=== PATIENT | female | born 1975 | race Caucasian/White ===

== ENCOUNTER 2019-11-05 14:29 | Emergency (ER) | payer OTHER, SELFPAY ==
[2019-11-05 14:37] VITALS: BMI 24.7
--- NOTE | 2019-11-05 14:38 | ED_ITS ---
Entered by Arianna Schroeder, acting as scribe for Richie Plascencia MD, [facility] HPI - Chest Pain General: Chief Complaint: Chest Pain Stated Complaint: CHEST PAIN Time Seen by Provider: 11/05/19 14:38 Source: patient and RN notes reviewed Mode of arrival: EMS Limitations: no limitations History of Present Illness: HPI narrative: 44 yo female presents to ED [facility] complaints of chest pain. The patient states the pain was centralized and it radiated through to her back. She said the pain began right after lunch. She was given a Nitro in the ambulance on the way to the ED and she said the pain has since resolved. She said her dad passed at age 46 of heart attack; she also has a family history of blood clots. She had shortness of breath at the time but no sweating. Associated symptoms: Deny abdominal pain, dyspnea, fever(s), nausea, palpitations or vomiting Review of Systems General: Reports: 10 or more systems reviewed and unremarkable except in HPI and below Const: Denies: fever, chills or body aches Eyes: Reports: blind spots; Denies: change in vision or blurry vision ENMT: Denies: throat pain, enlarged tonsils, painful swallowing, hoarseness, mouth pain or swelling of lips/tongue Card: Reports: chest pain; Denies: palpitations, irregular heart rhythm, edema or swelling of feet/ankles Resp: Denies: shortness of breath, productive cough or non-productive cough GI: Denies: abdominal pain, nausea or vomiting : Denies: flank pain, difficulty urinating, painful urination, urinary frequency, urinary urgency or urinary hesitancy Musc: Reports: extremity pain (left shoulder), joint pain (left shoulder) and limited range of motion; Denies: neck pain, back pain or extremity swelling Skin/Breast: Denies: rash, itching or redness Neuro: Denies: headache, numbness in extremities or weakness in extremities Endo: Denies: excessive urination, excessive thirst or tired all the time PFSH ED PFSH: Statuses (acute, chronic, etc) shown below reflect problem list status as previously entered and may not be historically accurate Social History Smoking and tobacco status: current every day smoker Physical Exam Const: COMMON NORMALS: no apparent distress, average body habitus, oriented x3, no limitations, healthy appearing, alert and well nourished HENMT: COMMON NORMALS: normocephalic, head/scalp atraumatic and moist oral mucous membranes HEAD & SCALP: normocephalic and atraumatic Eye: COMMON NORMALS: PERRL, EOMs intact bilaterally, conjunctivae normal and no scleral icterus CONJUNCTIVA: Yes conjunctivae normal PUPIL: Yes PERRL Neck/C-Spine: COMMON NORMALS: full ROM, supple, no meningeal signs, no JVD and no carotid bruits Chest: COMMONS NORMALS: inspection of chest normal and palpation of chest normal Resp: COMMON NORMALS: normal respiratory effort, no retractions, no use of accessory muscles, clear to auscultation bilaterally and percussion normal AUSCULTATION: clear to auscultation bilaterally PERCUSSION: percussion normal Cardio: COMMON NORMALS: no JVD, regular rate, regular rhythm, S1 normal heart sound, S2 normal heart sound, no gallops, no clicks, no murmurs, no rub and peripheral pulses 2+ throughout RATE: regular rate RHYTHM: regular rhythm HEART SOUNDS: S1 normal and S2 normal PERIPHERAL PULSES: pulses 2+ throughout GI: COMMON NORMALS: normal to inspection, nondistended, normoactive bowel sounds, soft to palpation, non-tender, no hepatosplenomegaly, no masses and no bruits PALPATION: Yes soft and Yes no hepatosplenomegaly : COMMON NORMALS: Yes no CVA tenderness BLADDER/KIDNEY EXAM: Yes no CVA tenderness Back/Pelvis: COMMON NORMALS: no CVA tenderness Extremity: COMMON NORMALS: normal to inspection, full ROM, normal capillary refill, no calf tenderness and no pedal edema Neuro: COMMON NORMALS: oriented x3 SENSORIUM/ORIENTATION: Yes alert MENINGEAL SIGNS: Yes no meningeal signs Skin: COMMON NORMALS: no rashes or lesions noted, no wounds, skin turgor normal, no jaundice, no petechiae and no mottling GENERAL SKIN EXAM: no rashes or lesions noted and turgor normal Course Reevaluation(s): Reevaluation #1: Discussed her lab and imaging findings with her. Negative for acute findings. Elevated d-dimer but negative CTA of her lungs. High-sensitivity troponin negative x2. We will discharge her home with no new orders. She voiced understanding and is in agreement with the plan. She will follow-up with her primary care provider within 3 days. Time: 18:52 MDM - Chest Pain MDM Narrative: Medical decision making narrative: 44-year-old female patient who presented to the emergency department with chest.. Chest pain sudden onset. Evaluation in the ED was negative for acute coronary syndrome or a pulmonary embolism. No pneumonia or other acute cardiopulmonary disease. She is therefore discharged home with no new orders. Medical Records: Attestation: I reviewed the patient's medical records. Lab Data: Attestation: I reviewed the patient's lab results. Labs: Lab Results 11/05/19 11/05/19 11/05/19 Range/Units 14:15 14:15 14:15 WBC 5.6 (4.0-10.0) 10^3/ uL RBC 5.17 (4.1-5.3) 10^6/u L Hgb 13.2 (11.5-15.3) g/dL Hct 41.2 (37.0-47.0) % MCV 79.7 L (81-99) fL MCH 25.5 L (28.0-34.0) pg MCHC 32.0 (30.0-36.0) g/dL RDW 18.0 H (12.1-15.1) % Plt Count 267 (130-400) 10^3/c mm MPV 12.1 H (7.4-10.4) fL Neut % (Auto) 44.7 % Lymph % (Auto) 41.5 % [place] % (Auto) 7.6 % Eos % (Auto) 4.9 % Baso % (Auto) 1.1 % Neut # (Auto) 2.5 (1.8-7.7) 10^3/u L Lymph # (Auto) 2.3 (0.8-4.8) 10^3/u L [place] # (Auto) 0.4 (0.2-0.9) 10^3/u L Eos # (Auto) 0.3 (0.0-0.8) 10^3/u L Baso # (Auto) 0.1 (0.0-0.1) 10^3/u L Nucleated RBC % (a uto) 0 % Nucleated RBCs # 0.0 /100WBC D-Dimer 2.00 H (0-0.59) ug/mIFE U Sodium 134 L (136-145) mmol/L Potassium 3.7 (3.5-5.1) mmol/L Chloride 95 L (98-107) mmol/L Carbon Dioxide 26 (22-29) mmol/L Anion Gap 16.7 (5-19) BUN 15 (6-20) mg/dL Creatinine 1.0 H (0.5-0.9) mg/dL GFR Calculation 60.0 L (90-130) mL/min Glucose 96 (74-109) mg/dL Calcium 10.1 (8.5-10.5) mg/dL Total Bilirubin 0.2 (0.15-1.2) mg/dL AST 27 (0-32) U/L ALT 22 (0-33) U/L Alkaline Phosphata se 91 (35-105) IU/L Troponin T Baselin e (0-10) ng/mL Troponin T 120 Min poarch (0-10) ng/mL Delta Troponin T (0-10) ABS# NT-Pro-B Natriuret Pep 29 (0-125) pg/mL Total Protein 7.5 (6.6-8.7) g/dL Albumin 4.8 (3.5-5.2) g/dL Globulin 2.7 (1.3-4.6) g/dL Lipase 26 (13-60) U/L HCG, Qual (Negative) 11/05/19 11/05/19 11/05/19 Range/Units 14:15 16:08 16:10 WBC (4.0-10.0) 10^3/ uL RBC (4.1-5.3) 10^6/u L Hgb (11.5-15.3) g/dL Hct (37.0-47.0) % MCV (81-99) fL MCH (28.0-34.0) pg MCHC (30.0-36.0) g/dL RDW (12.1-15.1) % Plt Count (130-400) 10^3/c mm MPV (7.4-10.4) fL Neut % (Auto) % Lymph % (Auto) % [place] % (Auto) % Eos % (Auto) % Baso % (Auto) % Neut # (Auto) (1.8-7.7) 10^3/u L Lymph # (Auto) (0.8-4.8) 10^3/u L [place] # (Auto) (0.2-0.9) 10^3/u L Eos # (Auto) (0.0-0.8) 10^3/u L Baso # (Auto) (0.0-0.1) 10^3/u L Nucleated RBC % (a uto) % Nucleated RBCs # /100WBC D-Dimer (0-0.59) ug/mIFE U Sodium (136-145) mmol/L Potassium (3.5-5.1) mmol/L Chloride (98-107) mmol/L Carbon Dioxide (22-29) mmol/L Anion Gap (5-19) BUN (6-20) mg/dL Creatinine (0.5-0.9) mg/dL GFR Calculation (90-130) mL/min Glucose (74-109) mg/dL Calcium (8.5-10.5) mg/dL Total Bilirubin (0.15-1.2) mg/dL AST (0-32) U/L ALT (0-33) U/L Alkaline Phosphata se (35-105) IU/L Troponin T Baselin e 6 (0-10) ng/mL Troponin T 120 Min poarch 6.00 (0-10) ng/mL Delta Troponin T 0 (0-10) ABS# NT-Pro-B Natriuret Pep (0-125) pg/mL Total Protein (6.6-8.7) g/dL Albumin (3.5-5.2) g/dL Globulin (1.3-4.6) g/dL Lipase (13-60) U/L HCG, Qual Negative (Negative) Imaging Data^: CTA Chest: Radiologist's impression: [address] [address] [address] Scan Report Signed Patient: Jeimy West #: [id number] : 1975Acct#:[id number] Age/Sex: 44 / FADM Date: 11/05/19 Loc: ERRoom/Bed: Attending Dr: Ordering Provider/Ordering MD: Richie Plascencia MD, [facility] Date of Service: 11/05/19 Procedure(s): CT angio chest PE protcl [id number] Accession Number(s): [id number] Report Number: [id number] PROCEDURE INFORMATION: Exam: CT Angiography Chest With Contrast Exam date and time: 11/05/2019 4:54 PM Age: 44 years old Clinical indication: Shortness of breath; Additional info: Chest pain, SOB, high pretest prob TECHNIQUE: Imaging protocol: Computed tomographic angiography of the chest with intravenous contrast. 3D rendering: MIP and/or 3D reconstructed images were created by the technologist. Total DLP: 470.06 mGy-cm Radiation optimization: All CT scans at this facility use at least one of these dose optimization techniques: automated exposure control; mA and/or kV adjustment per patient size (includes targeted exams where dose is matched to clinical indication); or iterative reconstruction. Contrast material: OMNI; Contrast volume: 95 ml; Contrast route: LV; COMPARISON: No relevant prior studies available. FINDINGS: Pulmonary arteries: Overall exam quality is good for evaluating the pulmonary arteries. There are no intraluminal filling defects to indicate pulmonary embolism. Aorta: Unremarkable. No aortic aneurysm. No aortic dissection. Lungs: No pneumonia or mass. Overall lung architecture is normal. Pleural space: Unremarkable. No pneumothorax. No pleural effusion. Heart: Unremarkable. No cardiomegaly. No pericardial effusion. Gallbladder and bile ducts: The gallbladder is surgically absent. Adrenals: 1.4 cm fatty left adrenal adenoma. Lymph nodes: Borderline enlarged central mediastinal nodes are most likely reactive. For example an AP window node measures 1.1 cm. Bones/joints: Unremarkable. No acute fracture. Soft tissues: Bilateral breast implants. CT/CT angio chest PE protcl [id number] IMPRESSION: 1. No pulmonary embolism or pneumonia. 2. No significant chest findings. Radiation Dose CTDIVOL = (mGy): DLP = 470.06 (mGy-cm) Dictated By:Jian Cabrales MD Signed By:Jian Cabralesigned Date/Time:11/05/19 8679 EKG Data^: EKG 1: Attestation: I personally reviewed and interpreted this EKG as follows: EKG interpretation date: 11/05/19 EKG interpretation time: 15:04 Prior EKG tracings: not available for review Interpretation: Normal sinus rhythm. Heart rate 62. Normal axis No ST changes. EKG 2: Attestation: I personally reviewed and interpreted this EKG as follows: EKG interpretation date: 11/05/19 EKG interpretation time: 18:46 Prior EKG tracings: available for review Interpretation: Unchanged from earlier today. Discharge Plan Discharge Patient Disposition: Home, Self-Care Clinical Impression: Chest pain Qualifiers: Chest pain type: other chest pain Qualified Code(s): R07.89 - Other chest pain Condition: Stable Prescriptions: Continued diphenoxylate-atropine 2.5-0.025 mg tablet 1 tab PO DAILY PRN (Reason: Diarrhea) RF: 0 Ascomp with Codeine 42-43-387-40 mg capsule 1 cap PO DAILY RF: 0 triamterene-hydrochlorothiazid 37.5-25 mg tablet 1 tab PO DAILY RF: 0 Trokendi XR 100 mg capsule,extended release 24hr 100 mg PO DAILY RF: 0 Discharge Orders: Discharge Order (Routine); Ordered 11/05/19 Ordered By: Richie Plascencia Referrals: Winston Hillman CHURN TENDER [Family Provider] - 1-3 days Patient Instructions: Chest Pain (ED) Activity Restrictions/Additional Instructions: Return for any new or worsening symptoms. Follow-up with your primary care provider within 3 days. Coding Level of Care Code ED Investment Banker for Chg Fwd The documentation recorded by the Alexandre mace Valerie R, accurately reflects the service I personally performed and the decisions made by Thais burns Adegoke I, MD, [facility] Nov 05, 2019 14:29
--- NOTE | 2019-11-05 15:01 | ECG_ITS ---
Measurements Intervals Lewis Rate: 62 P: 55 TN: 154 QRS: 77 QRSD: 96 T: 60 QT: 415 QTc: 423 SINUS RHYTHM No previous ECG available for comparison Electronically Signed On 11-05-2019 17:36:39 CLINICAL SYSTEMS EDUCATOR by Monster Flores M.D. [email or web address]
[2019-11-05 15:18] LABS: Basophils # 0.1 10^3/uL (0.0-0.1); Basophils % 1.1 %; Eosinophils # 0.3 10^3/uL (0.0-0.8); Eosinophils % 4.9 %; Hematocrit 41.2 % (37.0-47.0); Hemoglobin 13.2 g/dL (11.5-15.3); Lymphocytes # 2.3 10^3/uL (0.8-4.8); Lymphocytes % 41.5 %; Mean Corpuscular Hemoglobin 25.5 pg (28.0-34.0); Mean Corpuscular Volume 79.7 fL (81-99); Mean Platelet Volume 12.1 fL (7.4-10.4); Monocytes # 0.4 10^3/uL (0.2-0.9); Monocytes % 7.6 %; Neutrophils # 2.5 10^3/uL (1.8-7.7); Neutrophils % 44.7 %; Nucleated Red Blood Cells % 0 %; Platelet Count 267 10^3/cmm (130-400); Red Blood Count 5.17 10^6/uL (4.1-5.3); White Blood Count 5.6 10^3/uL (4.0-10.0)
[2019-11-05 15:38] LABS: Troponin(5th) Baseline 6 ng/mL (0-10)
[2019-11-05 15:47] LABS: Alanine Aminotransferase 22 U/L (0-33); Albumin Level 4.8 g/dL (3.5-5.2); Alkaline Phosphatase 91 IU/L (35-105); Anion Gap 16.7 (5-19); Aspartate Amino Transferase 27 U/L (0-32); Blood Urea Nitrogen 15 mg/dL (6-20); Calcium 10.1 mg/dL (8.5-10.5); Carbon Dioxide 26 mmol/L (22-29); Chloride 95 mmol/L (98-107); Globulin 2.7 g/dL (1.3-4.6); Glucose 96 mg/dL (74-109); Lipase 26 U/L (13-60); NT Pro B Type Natriuretic Pept 29 pg/mL (0-125); Potassium 3.7 mmol/L (3.5-5.1); Sodium 134 mmol/L (136-145); Total Bilirubin 0.2 mg/dL (0.15-1.2); Total Protein 7.5 g/dL (6.6-8.7)
--- NOTE | 2019-11-05 16:01 | CTR_ITS ---
PROCEDURE INFORMATION: Exam: CT Angiography Chest With Contrast Exam date and time: 11/05/2019 4:54 PM Age: 44 years old Clinical indication: Shortness of breath; Additional info: Chest pain, SOB, high pretest prob TECHNIQUE: Imaging protocol: Computed tomographic angiography of the chest with intravenous contrast. 3D rendering: MIP and/or 3D reconstructed images were created by the technologist. Total DLP: 470.06 mGy-cm Radiation optimization: All CT scans at this facility use at least one of these dose optimization techniques: automated exposure control; mA and/or kV adjustment per patient size (includes targeted exams where dose is matched to clinical indication); or iterative reconstruction. Contrast material: OMNI; Contrast volume: 95 ml; Contrast route: LV; COMPARISON: No relevant prior studies available. FINDINGS: Pulmonary arteries: Overall exam quality is good for evaluating the pulmonary arteries. There are no intraluminal filling defects to indicate pulmonary embolism. Aorta: Unremarkable. No aortic aneurysm. No aortic dissection. Lungs: No pneumonia or mass. Overall lung architecture is normal. Pleural space: Unremarkable. No pneumothorax. No pleural effusion. Heart: Unremarkable. No cardiomegaly. No pericardial effusion. Gallbladder and bile ducts: The gallbladder is surgically absent. Adrenals: 1.4 cm fatty left adrenal adenoma. Lymph nodes: Borderline enlarged central mediastinal nodes are most likely reactive. For example an AP window node measures 1.1 cm. Bones/joints: Unremarkable. No acute fracture. Soft tissues: Bilateral breast implants. CT/CT angio chest PE protcl [id number] IMPRESSION: 1. No pulmonary embolism or pneumonia. 2. No significant chest findings. Radiation Dose CTDIVOL = (mGy): DLP = 470.06 (mGy-cm)
[2019-11-05 16:21] LABS: HCG Qualitative Urine. Negative (Negative)
[2019-11-05 16:31] LABS: Troponin 5 2HR Delta 0 ABS# (0-10)
--- NOTE | 2019-11-05 17:30 | PC.NURSE ---
PATIENT TO XRAY
[2019-11-05] MEDS: iohexol 350 mg/mL 100 mL Btl 95 ML IV (17:36)
[2019-11-05 19:31] VITALS: BP 104/64; PULSE 73; RESP 18; TEMP 36.8; O2SAT 98
== END 2019-11-05 19:34 | disposition home or self-care (01) ==
PROVIDERS: Emergency Provider Family Medicine; Family Provider Nurse Practitioner Family
DX: R07.89 Other chest pain (principal); F17.210 Nicotine dependence, cigarettes, uncomplicated
CPT/HCPCS: 36415; 71275; 80053; 81025; 83690; 83880; 84484; 85025; 85378; 93005; 99282; 99284; Q9967

== ENCOUNTER 2019-11-30 07:31 | Emergency (ER) | payer OTHER, SELFPAY ==
[2019-11-30 07:45] VITALS: BP 103/77; PULSE 83; RESP 18; TEMP 36.8; O2SAT 98; BMI 24.5
--- NOTE | 2019-11-30 07:59 | PC.NURSE ---
Patient to room
--- NOTE | 2019-11-30 08:00 | XRR_ITS ---
PROCEDURE INFORMATION: Exam: XR Left Ribs with PA Chest, 3 Views Exam date and time: 11/30/2019 8:32 AM Age: 44 years old Clinical indication: Pain and injury or trauma; Fall; Initial encounter; Rib area, left side; Blunt trauma; Chest wall pain; Injury date: 11/28/19; Injury details: Fell on stairs 11/26 hit left side; Patient HX: Difficulty breathing hurts when coughing, twisting or bending TECHNIQUE: Imaging protocol: XR Left ribs 3 views with PA chest. COMPARISON: CT angio chest PE protcl [id number] 11/05/2019 5:45 PM FINDINGS: Lungs: No lung contusion. Pleural space: No pneumothorax, hemothorax, or pleural effusion. Heart/Mediastinum: The cardiac silhouette is not enlarged. The mediastinal contours are normal. Bones/joints: There is a nondisplaced fracture of the lateral left 8th rib. XR/XR ribs LT mn 3V w CXR1V [id number] IMPRESSION: Left 8th rib fracture without pneumothorax.
--- NOTE | 2019-11-30 08:01 | W.ED.FALL ---
HPI - Fall General: Chief Complaint: Fall Stated Complaint: sob fell over weekend Time Seen by Provider: 11/30/19 07:57 History of Present Illness: HPI Narrative: 44-year-old female comes in today with left lower rib pain. Patient reports that she had fallen on Saturday evening while walking up stairs. Patient reports to have tripped over loose pants and falling striking her left anterior chest wall. Patient appears in moderate pain. Patient appears well. Patient reports taking an alprazolam around 6 this morning, and a oxycontin for her pain. Patient states the oxycontin was left over from her hysterectomy. Review of Systems General: Reports: 10 or more systems reviewed and unremarkable except in HPI and below Musc: Reports: other (left anterior lower rib pain, contusion) PFSH ED PFSH: Social History Smoking and tobacco status: current every day smoker Physical Exam Const: COMMON NORMALS: no apparent distress and oriented x3 GENERAL APPEARANCE: cooperative HENMT: COMMON NORMALS: normocephalic, external ears normal, EAC's normal, TM's normal bilaterally and external nose normal HEAD & SCALP: normal to inspection and normocephalic FACE & SINUS: normal facial exam NOSE: external nose normal GENERAL EAR: hearing not grossly impaired EXTERNAL EAR: Yes external ears normal EXTERNAL AUDITORY CANAL: EAC's normal TYMPANIC MEMBRANE: TM's normal bilaterally MOUTH: oral and palatal mucosa normal THROAT: posterior oropharynx normal Eye: COMMON NORMALS: PERRL and EOMs intact bilaterally PUPIL: Yes PERRL Neck/C-Spine: COMMON NORMALS: full ROM and no lymphadenopathy Lymph: LYMPHATIC: no lymphedema noted Chest: CHEST: Yes tenderness rib (left anterior chest wall) and Yes ecchymosis (left lateral lower rib area) Resp: COMMON NORMALS: normal respiratory effort and clear to auscultation bilaterally AUSCULTATION: clear to auscultation bilaterally Cardio: COMMON NORMALS: regular rate and regular rhythm RATE: regular rate RHYTHM: regular rhythm GI: COMMON NORMALS: normal to inspection, nondistended, normoactive bowel sounds and non-tender : COMMON NORMALS: Yes no CVA tenderness BLADDER/KIDNEY EXAM: Yes no CVA tenderness Back/Pelvis: COMMON NORMALS: no CVA tenderness and thoracic and lumbar spine normal to inspection Extremity: COMMON NORMALS: normal to inspection GENERAL: No edema Neuro: COMMON NORMALS: oriented x3, moves all extremities and no focal motor deficits Psych: COMMON NORMALS: mental status grossly normal and cooperative Skin: COMMON NORMALS: no rashes or lesions noted GENERAL SKIN EXAM: no rashes or lesions noted Course Vital Signs: Vital signs: Vital Signs Temperature 98.3 F 11/30/19 07:45 Pulse Rate 83 11/30/19 07:45 Respiratory Rate 18 11/30/19 07:45 Blood Pressure 103/77 11/30/19 07:45 Pulse Oximetry 98 11/30/19 07:45 MDM - Fall MDM Narrative: Medical decision making narrative: Patient comes in today with complaints of left rib pain. Patient fallen on Saturday has persistent rib pain. On exam patient has tenderness to the left anterior lower ribs. Also notes some ecchymosis to the same area. Vital signs are normal. Patient has good air movement throughout lungs. Differential diagnosis includes contusion, fracture, pulmonary contusion, organ injury. Chest x-ray noted a single rib fracture. Abdomen was soft nontender. Suspect pain due to fracture recommended treatment for pain and follow-up as needed. Patient reports understanding [facility] care plan. Discharge Plan Discharge Patient Disposition: Home, Self-Care Clinical Impression: Left rib fracture Qualifiers: Encounter type: initial encounter Rib fracture type: single rib Fracture type: closed Qualified Code(s): S22.32XA - Fracture of one rib, left side, initial encounter for closed fracture Condition: Stable Prescriptions: New acetaminophen-codeine 300-30 mg tablet 1 tab PO Q4H PRN (Reason: pain) Qty: 20 RF: 0 ibuprofen 800 mg tablet 800 mg PO Q8H PRN (Reason: pain) Qty: 30 RF: 0 No Action diphenoxylate-atropine 2.5-0.025 mg tablet 1 tab PO DAILY PRN (Reason: Diarrhea) RF: 0 Ascomp with Codeine 80-44-146-40 mg capsule 1 cap PO DAILY RF: 0 triamterene-hydrochlorothiazid 37.5-25 mg tablet 1 tab PO DAILY RF: 0 Trokendi XR 100 mg capsule,extended release 24hr 100 mg PO DAILY RF: 0 pantoprazole 40 mg Tablet,Delayed Release (Dr/Ec) 40 mg PO DAILY RF: 0 Xanax 0.5 mg Tablet 0.5 mg PO BID PRN (Reason: Anxiety) RF: 0 Discharge Orders: Discharge Order (Routine); Ordered 11/30/19 Ordered By: Loi Zamorano Referrals: Winston Hillman, PENETRATION TESTER [Family Provider] - Discharge Diet: Usual diet Discharge Activity: Increase activity as tolerated Patient Instructions: Rib Fracture (ED) Activity Restrictions/Additional Instructions: Activity as tolerated Drink plenty of water Splint ribs for deep breath and cough Follow-up with primary care in three days for recheck Return to ER for increase shortness of breath and high fever Stand Alone Forms: Work/School Release Coding Level of Care Code ED Technical Fellow for Chg Fwd Exam Comprehensive
[2019-11-30] MEDS: ketorolac 30 mg/mL INJ IM (08:06)
--- NOTE | 2019-11-30 08:11 | PC.NURSE ---
X-ray with patient
--- NOTE | 2019-11-30 08:13 | PC.NURSE ---
Patient to X-ray via wheelchair.
--- NOTE | 2019-11-30 08:30 | PC.NURSE ---
Patient back to room
== END 2019-11-30 08:48 | disposition home or self-care (01) ==
PROVIDERS: Emergency Provider Nurse Practitioner Family; Family Provider Nurse Practitioner Family
DX: S22.32XA Fracture of one rib, left side, initial encounter for closed fracture (principal); F17.200 Nicotine dependence, unspecified, uncomplicated; W01.10XA Fall on same level from slipping, tripping and stumbling with subsequent striking against unspecified object, initial encounter
CPT/HCPCS: 71101; 96372; 99281; 99283; J1885

== ENCOUNTER 2020-07-27 15:40 | Outpatient (CLI) | payer OTHER, SELFPAY ==
--- NOTE | 2020-07-27 15:48 | MM_ITS ---
WS: [id number] BILATERAL DIGITAL SCREENING MAMMOGRAM WITH CAD CLINICAL INFORMATION: SCREENNG HISTORY: Screening mammogram. No current complaints. COMPARISON: TECHNIQUE: Bilateral CC and MLO. FINDINGS: Bilateral breast implants. The breast are composed of extremely dense tissue, which can limit the detection of small underlying mass lesions. No suspicious focal mass, asymmetry, calcifications, or architectural distortion. No ev idence of malignancy. MM/[place] [id number] IMPRESSION: BI-RADS: 2-Benign FOLLOW UP: 1 Year Follow-up Recommend return to annual screening mammography.
== END 2020-07-27 15:41 | disposition home or self-care (01) ==
LOC: RADSHAW 15:45
PROVIDERS: PCP Nurse Practitioner Family; Visit Provider Nurse Practitioner Family
DX: Z12.31 Encounter for screening mammogram for malignant neoplasm of breast (principal)
CPT/HCPCS: 77067

== ENCOUNTER → 2020-10-08 12:45 | Outpatient (BNVA) | payer OTHER, SELFPAY | PROVIDERS: PCP Nurse Practitioner Family; Visit Provider Nurse Practitioner | DX: Z20.828 Contact with and (suspected) exposure to other viral communicable diseases (principal) | CPT/HCPCS: 87635 ==

== ENCOUNTER → 2020-10-11 10:40 | Outpatient (BNVA) | payer OTHER, SELFPAY | PROVIDERS: PCP Nurse Practitioner Family; Visit Provider Nurse Practitioner Family | DX: Z20.828 Contact with and (suspected) exposure to other viral communicable diseases (principal); J06.9 Acute upper respiratory infection, unspecified; R43.0 Anosmia | CPT/HCPCS: 87426 ==

== ENCOUNTER 2023-06-14 08:28 | Outpatient (CLI) | payer OTHER, SELFPAY ==
--- NOTE | 2023-06-14 08:35 | MR_ITS ---
WS: [id number] MRI LEFT KNEE HISTORY: POST OP KNEE MEDICAL MENISCECTOMY COMPARISON: None available. Anterior cruciate ligament: Abnormal contour of the ACL. Majority the fibers are still abnormal orien tation but there is slight deviation suggesting scarring and fibrosis. No full-thickness tear. Posterior cruciate ligament: Intact. Medial collateral ligament: Intact. Posterior lateral corner structures: Intact. Medial menisci: Small caliber posterior horn with increased T2 signal. Mild increased signal extends into the meniscal root. Negative anterior horn. Lateral meniscus: Intact. Normal signal, size and shape. Extensor mechanism: Distal quadriceps tendon and patellar tendons are intact. Fluid and soft tissue: Small suprapatellar joint effusion. Very small Mccarthy's cyst. Osseous and articular structures: Patellofemoral compartment: Normal. Medial compartment: No significant joint space narrowing. The cartilage is intact. No marrow edema. Lateral compartment: Normal. IMPRESSION: 1. Abnormal configuration of the ACL. Majority of the ACL fibers are intact. There is mild distortion of the fibers suggesting fibrosis and scarring. 2. Abnormal shape and signal of the posterior horn medial meniscus. Blunting of the meniscus involvin g the free edge. Meniscal tear is suspected. 3. No fracture or marrow edema. 4. Small suprapatellar joint effusion and very small Mccarthy's cyst.
== END 2023-06-14 08:29 | disposition home or self-care (01) ==
PROVIDERS: PCP Nurse Practitioner Family; Visit Provider Orthopaedic Surgery
DX: Z47.89 Encounter for other orthopedic aftercare (principal); M25.462 Effusion, left knee; M71.22 Synovial cyst of popliteal space [Baker], left knee
CPT/HCPCS: 73721

== ENCOUNTER 2023-08-28 06:00 | Outpatient (RCR) | payer OTHER, SELFPAY | END 2023-09-05 23:59 | disposition home or self-care (01) | LOC: TPT 06:00 | PROVIDERS: Visit Provider Orthopaedic Surgery | DX: Z98.890 Other specified postprocedural states (principal) | CPT/HCPCS: 97161 ==

== ENCOUNTER 2024-12-24 14:23 | Outpatient (CLI) | payer OTHER, SELFPAY ==
--- NOTE | 2024-12-24 14:40 | MRR_ITS ---
PROCEDURE INFORMATION: Exam: MR Left Lower Extremity Joint Without Contrast, Knee Exam date and time: 12/24/2024 2:41 PM Age: 49 years old Clinical indication: Prior surgery; Surgery date: 6+ months; Surgery type: Left knee; Lt knee pain S/P fall 2-3 months ago. Prior surg on lt knee for meniscus. PT has known root tear in lt knee. ; Additional info: Pain S/P injury TECHNIQUE: Imaging protocol: Magnetic resonance imaging of the left lower extremity joint without contrast. Exam focused on the knee. COMPARISON: MR knee LT wo con* [id number] 06/14/2023 8:49 AM FINDINGS: Bones/joints: There is some thinning of articular cartilage along the medial femoral condyle mildly progressed from prior examination. Remainder of the articular surfaces are fairly well preserved. Medial meniscus: Body of the medial meniscus is foreshortened blunted with amputation meniscal apex unchanged presumed secondary medial meniscectomy. There is also changes extending into the posterior horn with some irregularity along the inferior articular surface redemonstrated that is also unchanged and presumed postoperative in nature. Lateral meniscus: Unremarkable. No tear. Anterior cruciate ligament: There is diffuse thickening with intrasubstance signal changes secondary to excessive cystic/mucoid degeneration of the ACL with intraligamentous cystic changes that have progressed from previous exam. There are new cystic changes involving the femoral and tibial attachments of the ACL likely representing associated intruding intraosseous ganglion cyst formation. Findings liver assessment for underlying partial tear. Posterior cruciate ligament: Unremarkable. No tear. Medial capsule and supporting structures: Unremarkable. No tear. Lateral capsule and supporting structures: Unremarkable. No tear. Extensor mechanism of knee: Unremarkable. No tear. Soft tissues: Unremarkable. MR/MR knee LT wo con* [id number] IMPRESSION: 1. Stable postoperative changes of the body and posterior horn of the medial meniscus from prior partial meniscectomy. 2. Progressive cystic/mucoid degeneration of the ACL with development of intruding intraosseous ganglion cysts at the femoral and tibial attachment sites.
== END 2024-12-24 14:24 | disposition home or self-care (01) ==
LOC: RAD 14:25
PROVIDERS: PCP Nurse Practitioner Family; Visit Provider Orthopaedic Surgery
DX: M23.92 Unspecified internal derangement of left knee (principal); Z98.890 Other specified postprocedural states; M23.612 Other spontaneous disruption of anterior cruciate ligament of left knee; M67.462 Ganglion, left knee; R93.6 Abnormal findings on diagnostic imaging of limbs
CPT/HCPCS: 73721